=== PATIENT | female | born 1950 | race Caucasian/White ===

== ENCOUNTER 2020-04-06 19:37 | Inpatient (IN) | payer MEDICARE, BC ==
[~2020-04-06] VITALS: Ht 162.6 cm; Wt 99.2 kg
[2020-04-06 20:58] LABS: BASO # 0.1 (0.0-0.2); BASO % 0.3 % (0.0-2.0); EOS % 0.2 % (0-4.0); GRAN # 13.2 (1.4-6.5); GRAN % 80.3 % (42.2-75.2); HEMATOCRIT 42.2 % (37.0-47.0); HEMOGLOBIN 14.2 g/dl (12.5-16.0); LYMPH # 1.7 (1.2-3.4); LYMPH % 10.5 % (20.0-51.0); MEAN CELL VOLUME 88 fl (80.0-100.0); MEAN CORPUSCULAR HEMOGLOBIN 30 pg (27.0-31.0); MEAN CORPUSCULAR HGB CONC 34 g/dl (33.0-37.0); MEAN PLATELET VOLUME 11.1 fl (7.4-10.4); MONO # 1.4 (0.1-0.6); MONO % 8.3 % (1.7-9.3); PLATELET COUNT 227 K/mm3 (130-400); RED BLOOD COUNT 4.81 M/mm3 (4.10-5.30); REDCELL DISTRIBUTION WIDTH-CV 12.8 % (11.5-14.5)
[2020-04-06] MEDS ORDERED: LANTUS100 U/ML SQ (21:11)
[2020-04-06] MEDS ORDERED: GLUCOPHAGE1000 MG PO (21:12)
[2020-04-06] MEDS ORDERED: COZAAR100 MG PO (21:13)
[2020-04-06] MEDS ORDERED: ZYBAN150 M1 (21:13)
[2020-04-06 21:15] LABS: ALBUMIN 4.2 gm/dL (3.5-5.0); BILIRUBIN,TOTAL 0.6 mg/dL (0.0-1.0); C-REACTIVE PROTEIN 7.3 mg/dL (0.0-0.9); CALCIUM 10.2 mg/dL (8.4-10.2); CREATININE, serum 0.6 (0.52-1.25); POTASSIUM 3.9 mmol/L (3.4-5.0); TOTAL PROTEIN 7.8 gm/dL (6.4-8.2)
[2020-04-06] MEDS ORDERED: HCTZ 25MG TAB25 MG PO (21:15)
[2020-04-06] MEDS ORDERED: LEVOTHYROXINE (21:15)
[2020-04-06] MEDS ORDERED: SIMVASTATIN (21:16)
[2020-04-06] MEDS ORDERED: ASPIRIN 81M81 MG/TA2 PO ×2 (21:17→22:35)
[2020-04-06] MEDS ORDERED: PREVACID 30MG30 M1 PO (22:25)
[2020-04-06] MEDS ORDERED: TOPROL XL 50MG50 MG PO (22:26)
[2020-04-06] MEDS ORDERED: ZOCOR 40MG40 MG PO (22:26)
[2020-04-06] MEDS ORDERED: SYNTHROID0.1 MG/TAB PO (22:30)
[2020-04-06] MEDS ORDERED: CALCIUM CARBON650 M2 PO (22:31)
[2020-04-06] MEDS ORDERED: MAG-OX 400400 MG/TAB PO (22:33)
[2020-04-06] MEDS ORDERED: VITAMIN B COMPL1 SGL PO (22:34)
[2020-04-06] MEDS ORDERED: MASON NATURAL2000 IU PO (22:35)
[2020-04-06] MEDS ORDERED: FERROUSAL325 MG PO (22:35)
[2020-04-06] MEDS ORDERED: THE MEDICINE S200 M2 PO (22:36)
[2020-04-06] MEDS ORDERED: SENNA-S 50 MG-81 TAB PO (22:36)
[2020-04-06] MEDS ORDERED: WELLBUTRIN XL150 MG PO (22:38)
[2020-04-07 00:06] VITALS: BP 182/83; PULSE 76; TEMP 97.7
[2020-04-07] MEDS ORDERED: LUMIGAN 2.5 ML2.5 M1 OP (00:55)
--- NOTE | 2020-04-07 02:00 | NUR ---
Pt arrived to the floor via stretcher. Pt was able to ambulate to the bed. Pt did well with ambulating. Pt has Vanco infusing at this time. The hosptialist was contacted just to confirm medications and to inform her that during the pt assessment the pt stated that she was havinb buring when she urinated, a UA was done at this time. Pt also was given a sandwich tray at this time. Pt is currently resting in bed. Also during the assessment it was noted that pt left side of her foot and her toe has a small ulcer. Pt foot was marked at this time to show the area of redness. Pt has her call light within reach and her bed is in lowest position.
[2020-04-07 02:29] LABS: COLLECTION METHOD CLEAN CATCH
[2020-04-07 02:36] LABS: MUCOUS Present /lpf; PH 7 (5-8); SQUAMOUS EPITHELIAL 0-2 /hpf; URINE APPEARANCE Clear; URINE BACTERIA None Seen /hpf; URINE BILIRUBIN Negative (NEGATIVE); URINE BLOOD Negative (NEGATIVE); URINE COLOR Yellow; URINE GLUCOSE Negative (NEGATIVE); URINE KETONE Negative (NEGATIVE); URINE LEUKOCYTE ESTERASE Negative (NEGATIVE); URINE NITRATE Negative (NEGATIVE); URINE PROTEIN(semi-quant) 1+ (NEGATIVE); URINE RBC 0-2 /hpf; URINE UROBILINOGEN Negative (NEGATIVE)
[2020-04-07 04:27] VITALS: BP 142/65; PULSE 67; TEMP 98.2
--- NOTE | 2020-04-07 05:26 | NUR ---
Pt weight showed that she has a 5% weight difference in the previous entry. Pt was weighed in ED and this weight was 34lbs more. Pt bed was zeroed out and we got 205lbs for pts weight.
[2020-04-07 06:23] LABS: BASO % 0.4 % (0.0-2.0); EOS # 0.2 (0.0-0.7); EOS % 1.9 % (0-4.0); GRAN # 6.4 (1.4-6.5); GRAN % 69.6 % (42.2-75.2); HEMATOCRIT 38.2 % (37.0-47.0); HEMOGLOBIN 12.5 g/dl (12.5-16.0); LYMPH # 1.7 (1.2-3.4); LYMPH % 17.9 % (20.0-51.0); MEAN CELL VOLUME 91 fl (80.0-100.0); MEAN CORPUSCULAR HEMOGLOBIN 30 pg (27.0-31.0); MEAN CORPUSCULAR HGB CONC 33 g/dl (33.0-37.0); MEAN PLATELET VOLUME 12.1 fl (7.4-10.4); MONO # 0.9 (0.1-0.6); MONO % 9.9 % (1.7-9.3); PLATELET COUNT 195 K/mm3 (130-400); REDCELL DISTRIBUTION WIDTH-CV 13.2 % (11.5-14.5)
[2020-04-07 06:32] LABS: ALBUMIN 3.5 gm/dL (3.5-5.0); BILIRUBIN,TOTAL 0.4 mg/dL (0.0-1.0); CALCIUM 9.4 mg/dL (8.4-10.2); CREATININE, serum 0.65 (0.52-1.25); POTASSIUM 3.5 mmol/L (3.4-5.0); TOTAL PROTEIN 6.7 gm/dL (6.4-8.2)
--- NOTE | 2020-04-07 06:34 | NUR ---
Vancomycin Initial Dosing Pharmacy Note Ordering provider: Jerri Arias MD Indication/duration: L-foot cellulitis/ulcer, 5 days Relevant comorbidities: diabetes, h/o MRSA & osteomyelitis of R-foot LABS: SCr 0.6, CrCl~64, GFR 99 Recommendation: Will continue Vancomycin 1 gm IV q12h. Pharmacy will continue to monitor and check a Vancomycin trough on 04/08/20. Loading dose: 1.5 grams Maintenance dose: 1 gram every 12 hours Trough goal: 10-15 ug/mL
--- NOTE | 2020-04-07 07:26 | NUR ---
Pt currently sleeping in bed. Pt has her call light within reach.
--- NOTE | 2020-04-07 07:47 | NUR ---
CASEY CLAUDIO CALLED AND NOTIFED OF ORTHO CONSULT.
[2020-04-07 08:33] VITALS: BP 154/69; PULSE 62; TEMP 98.6
--- NOTE | 2020-04-07 12:00 | NUR ---
NOTIFIED THAT THE PATIENT IS REFUSING TO USE THE NOVOLOG SLIDING SCALE. PATIENT REPORTS THAT IN THE PAST THAT SHE DID NOT RESPOND TO THE NOVOLOG. PATIENT REPORTS THAT HUMALOG WORKS.
[2020-04-07 12:44] VITALS: BP 180/60; PULSE 66; TEMP 97.9
--- NOTE | 2020-04-07 14:38 | NUR ---
PATIENT IV TO INT. PATIENT TAKEN TO MRI VIA WHEELCHAIR. WILL WAIT FOR PATIENT ARRIVAL BACK TO ROOM 348.
--- NOTE | 2020-04-07 15:54 | NUR ---
PATIENT ARRIVED BACK TO ROOM 348 FROM MRI VIA WHEELCHAIR. PATIENT SETTELED INTO ROOM. PATIENT SITTING UP IN BEDSIDE CHAIR. LLE ELEVATED ON A PILLOW. PATIENT RE-CONNECTED TO IV FLUIDS. IV ZOSYN HUNG AT THIS TIME. PATIENT DENIES ANY PAIN. CALL LIGHT WITHIN REACH. THIS NURSE DISCUSSED WITH THE PATIENT THAT WOULD LIKE FOR THE PATIENT TO TRY THE NOVOLOG INSULIN WITH DINNER TO SEE IF IT HAS ANY AFFECT ON HER BLOOD SUGARS, IF NOT THEY WILL RE-VISIT INSULIN OPTIONS DUE TO HUMALOG BEING UNAVAILABLE IN THE HOSPITAL. PATIENT AGREEABLE TO TRY NOVOLOG.
--- NOTE | 2020-04-07 16:17 | NUR ---
Computer Science Professor met with patient to discuss discharge planning. Patient lives in [place] with her , Favio (ph#[phone]) and sees Dr. Jason for primary care. Patient obtains medications from [facility] with no difficulties. Patient has a rollator, cane, and CPAP at home. Patient is normally independent with ADLS and plans to return home at discharge. Patient states she is in the process of working on DPOA-HC at Dr. Jason's office. No needs identified at this time.
[2020-04-07 16:46] VITALS: BP 146/72; PULSE 67; TEMP 98.1
--- NOTE | 2020-04-07 19:25 | NUR ---
REPORT GIVEN TO KAYLA RUFF.
[2020-04-07 19:32] VITALS: BP 138/62; PULSE 77; TEMP 98.7
--- NOTE | 2020-04-07 21:15 | NUR ---
Pt. sitting up in the chair at this time. Pt. is A&OX3, assessment complete. IV to lt. forearm patent, IV fluids infusing per orders. Pt. denies pain. Applied a telfa dressing to lt. 5 th toe. Pt. denies further needs, call light within reach.
[2020-04-08 00:27] VITALS: BP 140/68; PULSE 78; TEMP 98.9
[2020-04-08 03:38] VITALS: BP 136/72; PULSE 93; TEMP 98.7
--- NOTE | 2020-04-08 06:55 | NUR ---
Lying in bed with eyes closed. Opens eyes when name called out. Denies pain. Redness and 1+ edema noted to left lower extremity. Dressing to left fifth digit in place. Pulled dressing back, purulent discharge from fifth digit, necrotic area noted. Patient denies needs or concerns at this time.
[2020-04-08 07:22] VITALS: BP 138/76; PULSE 66; TEMP 97.8
[2020-04-08 08:50] LABS: BASO # 0.1 (0.0-0.2); BASO % 0.9 % (0.0-2.0); EOS # 0.2 (0.0-0.7); EOS % 2.8 % (0-4.0); GRAN # 5.7 (1.4-6.5); GRAN % 70.7 % (42.2-75.2); HEMATOCRIT 40.1 % (37.0-47.0); HEMOGLOBIN 13.4 g/dl (12.5-16.0); LYMPH # 1.3 (1.2-3.4); LYMPH % 16.1 % (20.0-51.0); MEAN CELL VOLUME 89 fl (80.0-100.0); MEAN CORPUSCULAR HEMOGLOBIN 30 pg (27.0-31.0); MEAN CORPUSCULAR HGB CONC 33 g/dl (33.0-37.0); MEAN PLATELET VOLUME 11.5 fl (7.4-10.4); MONO # 0.7 (0.1-0.6); MONO % 9.1 % (1.7-9.3); PLATELET COUNT 222 K/mm3 (130-400); RED BLOOD COUNT 4.49 M/mm3 (4.10-5.30)
[2020-04-08 09:00] LABS: CALCIUM 9.9 mg/dL (8.4-10.2); CREATININE, serum 0.59 (0.52-1.25); POTASSIUM 4.2 mmol/L (3.4-5.0)
--- NOTE | 2020-04-08 10:34 | NUR ---
Vancomycin Follow-up Pharmacy Note: Current regimen: 1000 mg Q12H Vancomycin trough: 7.98 Adjustments: Changing regimen to 1000 mg Q8H Pharmacy will continue to follow.
[2020-04-08 11:22] VITALS: BP 128/76; PULSE 64; TEMP 98.6
--- NOTE | 2020-04-08 13:39 | NUR ---
Cleaned patient's left 5th digit on foot. Removed purulent discharge and scrubbed area with 4x4 with saline. Area dried. Patient unable to feel anything when cleaning toe and squeezing area to attempt to get more of the purulent discharge out. Area left open to air. Patient says that she would like to rediscuss options with Ortho in the morning as she is aware that she has osteomyelitis and she may need to have some type of amputation. Explain that we will notify ortho that she would like to talk further with them. Patient sitting up in chair with legs elevated. Denies additional needs at this time.
--- NOTE | 2020-04-08 14:11 | NUR ---
CASEY Rhodes, with ortho notified that patient would like to discuss options for treatment further. Carmelo says they will come by in the morning to discuss further with the patient.
[2020-04-08 16:14] VITALS: BP 142/72; PULSE 65; TEMP 98.6
--- NOTE | 2020-04-08 17:46 | NUR ---
Sitting up in chair. Just got off the phone with her daughter. Starting to eat dinner tray. Patient says that she feels overall today she had a good day. Was provided with a lot of good information related to her condition and she has been able to discuss it some with her family. Hopes to talk more with the Ortho specialist tomorrow and she still wants to update her PCM and get their insight with what is going on. Denies pain at this time or any additional needs.
[2020-04-08 20:26] VITALS: BP 122/78; PULSE 81; TEMP 98.7
--- NOTE | 2020-04-08 21:10 | NUR ---
Pt. sitting up in chair at this time. Pt. is A&OX3, assessment complete. INT to lt. forearm noted to be a bit puffy and pt. reports it feels tenders. INT to lt. forearm discontinued. New site started to rt. forearm by Machine Stacker. Lt. 5 toe noted to have purulent drainage, site is JEANNA. Reddness marked on foot. Pt. denies pain to the foot but reports generalized aches and pains and would like Tylenol with evening meds. Will give per orders. Pt. ambulated to the bathroom with walker then assisted to bed. Pt. denies further needs, call light within reach.
[2020-04-09 04:25] VITALS: BP 130/68; PULSE 66; TEMP 98.2
[2020-04-09 05:36] LABS: BASO # 0.1 (0.0-0.2); BASO % 0.7 % (0.0-2.0); EOS # 0.3 (0.0-0.7); EOS % 4.3 % (0-4.0); GRAN # 4.2 (1.4-6.5); GRAN % 62.9 % (42.2-75.2); HEMOGLOBIN 12.1 g/dl (12.5-16.0); LYMPH # 1.4 (1.2-3.4); LYMPH % 21.2 % (20.0-51.0); MEAN CELL VOLUME 88 fl (80.0-100.0); MEAN CORPUSCULAR HEMOGLOBIN 29 pg (27.0-31.0); MEAN CORPUSCULAR HGB CONC 33 g/dl (33.0-37.0); MEAN PLATELET VOLUME 11.3 fl (7.4-10.4); MONO # 0.7 (0.1-0.6); MONO % 10.5 % (1.7-9.3); PLATELET COUNT 208 K/mm3 (130-400); RED BLOOD COUNT 4.15 M/mm3 (4.10-5.30); REDCELL DISTRIBUTION WIDTH-CV 12.8 % (11.5-14.5)
[2020-04-09 05:37] LABS: HEMATOCRIT 36.6 % (37.0-47.0)
[2020-04-09 05:47] LABS: CALCIUM 9.7 mg/dL (8.4-10.2); CREATININE, serum 0.57 (0.52-1.25)
[2020-04-09 07:58] VITALS: BP 138/82; PULSE 65; TEMP 98.6
--- NOTE | 2020-04-09 08:11 | NUR ---
Sitting up in chair with eyes open. No pain at this time. Bilat LE edema noted. Redness noted to left lower extremity, areas of redness were previously marked, not out of the borders or any new redness noted. Left foot 5th digit with purulent discharge coming from toe, odorous. Dr. Acuna in room and talks with the patient about condition and plan at this time. Patient able to ask him questions and get clarification on diagnosis.
[2020-04-09 11:01] VITALS: BP 142/72; PULSE 63; TEMP 97.8
--- NOTE | 2020-04-09 11:49 | NUR ---
Sitting up in chair watching TV. Denies pain. Will want to get in shower after eating lunch. Denies additional needs or questions at this time.
[2020-04-09 15:31] VITALS: BP 144/84; PULSE 64; TEMP 98.3
--- NOTE | 2020-04-09 16:23 | NUR ---
Resumed care after getting report from Jes. Patient up to chair with feet elevated. Patient's at [facility]. No complaints or concerns from patient at this time.
--- NOTE | 2020-04-09 18:59 | NUR ---
Patient denies needed. Bedside report to Westley
[2020-04-09 20:44] VITALS: BP 138/85; PULSE 73; TEMP 98.3
[2020-04-10 04:27] VITALS: BP 169/74; PULSE 66; TEMP 98.2
[2020-04-10 06:14] LABS: BASO # 0.1 (0.0-0.2); BASO % 0.7 % (0.0-2.0); EOS # 0.3 (0.0-0.7); EOS % 4.8 % (0-4.0); GRAN # 4.2 (1.4-6.5); GRAN % 62.4 % (42.2-75.2); HEMATOCRIT 37.1 % (37.0-47.0); HEMOGLOBIN 12.4 g/dl (12.5-16.0); LYMPH # 1.4 (1.2-3.4); LYMPH % 21.2 % (20.0-51.0); MEAN CELL VOLUME 89 fl (80.0-100.0); MEAN CORPUSCULAR HEMOGLOBIN 30 pg (27.0-31.0); MEAN CORPUSCULAR HGB CONC 33 g/dl (33.0-37.0); MEAN PLATELET VOLUME 11.3 fl (7.4-10.4); MONO # 0.7 (0.1-0.6); MONO % 10.5 % (1.7-9.3); PLATELET COUNT 213 K/mm3 (130-400); RED BLOOD COUNT 4.15 M/mm3 (4.10-5.30); REDCELL DISTRIBUTION WIDTH-CV 12.9 % (11.5-14.5)
[2020-04-10 06:26] LABS: CALCIUM 9.8 mg/dL (8.4-10.2); CREATININE, serum 0.78 (0.52-1.25); POTASSIUM 3.9 mmol/L (3.4-5.0)
[2020-04-10 06:33] VITALS: BP 148/64; PULSE 67; TEMP 97.9
[2020-04-10] MEDS ORDERED: MAXIPIME2 GM IJ (08:37)
[2020-04-10 08:51] VITALS: BP 134/82; PULSE 67; TEMP 98.2
--- NOTE | 2020-04-10 09:14 | NUR ---
PT INDEPENDENT IN ROOM. LITTLE TOE ON LEFT FOOT INFECTED AND DRAINING. PLAN ON OUT PATIENT ABX X6 WEEKS. PICC LINE TO BE PLACED TODAY AND DISCHARGE AFTER RECIEVING IV ABX DOSE.
--- NOTE | 2020-04-10 10:19 | NUR ---
YOANA update. Patient order for IV antibotics was sent to express unit via fax. YOANA met with patient about choices on outpatient. Patient indicated that she wants to complete cycles at [facility] and she would prefer 06:-06:30 am to 06-06:30 pm. Patient reports that she has transportation. Nothing further.
[2020-04-10 11:54] VITALS: BP 124/78; PULSE 88; TEMP 98.3
--- NOTE | 2020-04-10 14:50 | NUR ---
DISCHARGE INSTRUCTIONS REVIEWED WITH PT. PT VERBALIZED UNDERSTANDING. LIGHT DRESSING PLACED OVER AFFECTED FOOT. SURGICAL SHOE PLACED FOR PATIENT.
== END 2020-04-10 15:32 | disposition home or self-care (01) | DRG 638 ==
LOC: COL.ER 19:37 → SURG 21:42
PROVIDERS: Emergency Medicine; Nurse Practitioner Family; ADMIT Student in an Organized Health Care Education/Training Program
DX: E11.628 Type 2 diabetes mellitus with other skin complications (principal); M86.8X8 Other osteomyelitis, other site; L03.032 Cellulitis of left toe; E11.69 Type 2 diabetes mellitus with other specified complication; E03.9 Hypothyroidism, unspecified; G47.30 Sleep apnea, unspecified; E78.5 Hyperlipidemia, unspecified; I10 Essential (primary) hypertension; I25.10 Atherosclerotic heart disease of native coronary artery without angina pectoris; E11.40 Type 2 diabetes mellitus with diabetic neuropathy, unspecified; Z86.14 Personal history of Methicillin resistant Staphylococcus aureus infection; Z96.653 Presence of artificial knee joint, bilateral; Z89.431 Acquired absence of right foot; Z90.49 Acquired absence of other specified parts of digestive tract; Z79.82 Long term (current) use of aspirin
CPT/HCPCS: 99223-AI; 99233-AI; 99239; A9585; J0692; J0696; J1650; J1815; J2543; J3370; J7030; J7050

== ENCOUNTER 2020-04-22 18:10 | Outpatient (RCR) | payer MEDICARE, BC ==
[2020-04-10 18:33] VITALS: BP 165/80; PULSE 74; TEMP 98.3
[2020-04-11 08:20] VITALS: BP 154/85; PULSE 68; TEMP 98.3
[2020-04-11 08:57] VITALS: BP 154/85; PULSE 69; TEMP 98.3
[2020-04-11 18:06] VITALS: BP 182/81; PULSE 87; TEMP 98.6
[2020-04-12 07:42] VITALS: BP 180/63; PULSE 61; TEMP 98.5
[2020-04-12 18:05] VITALS: BP 207/74; PULSE 70; TEMP 98.2
[2020-04-13 07:15] VITALS: BP 164/85; PULSE 62; TEMP 98.2
[2020-04-13 18:39] VITALS: BP 184/88; PULSE 66; TEMP 98.4
[2020-04-14 08:07] VITALS: BP 167/81; PULSE 67; TEMP 98.5
[2020-04-14 18:04] VITALS: BP 185/87; PULSE 83; TEMP 97.3
[2020-04-15 07:30] VITALS: BP 162/78; PULSE 65; TEMP 97.7
[2020-04-16 07:17] VITALS: BP 157/82; PULSE 66; TEMP 97.6
[2020-04-17 07:12] VITALS: BP 189/77; PULSE 66; TEMP 97.5
[2020-04-17 07:37] LABS: BASO # 0.1 (0.0-0.2); BASO % 0.8 % (0.0-2.0); EOS # 0.2 (0.0-0.7); GRAN # 4.8 (1.4-6.5); HEMATOCRIT 41.6 % (37.0-47.0); HEMOGLOBIN 13.6 g/dl (12.5-16.0); LYMPH # 1.6 (1.2-3.4); MEAN CELL VOLUME 90 fl (80.0-100.0); MEAN CORPUSCULAR HEMOGLOBIN 29 pg (27.0-31.0); MEAN CORPUSCULAR HGB CONC 33 g/dl (33.0-37.0); MEAN PLATELET VOLUME 11.1 fl (7.4-10.4); MONO # 0.7 (0.1-0.6); MONO % 9.8 % (1.7-9.3); PLATELET COUNT 235 K/mm3 (130-400); RED BLOOD COUNT 4.62 M/mm3 (4.10-5.30); REDCELL DISTRIBUTION WIDTH-CV 13.1 % (11.5-14.5)
[2020-04-17 07:48] LABS: ALANINE AMINOTRANSFERASE 19 U/L (4-34); ALBUMIN 4.1 gm/dL (3.5-5.0); ALKALINE PHOSPHATASE 110 U/L (50-136); ANION GAP 7 mmol/L (7-16); AST,SGOT 23 U/L (15-37); BILIRUBIN,TOTAL 0.4 mg/dL (0.0-1.0); BLOOD UREA NITROGEN 23 mg/dL (7-17); CALCIUM 10.5 mg/dL (8.4-10.2); CARBON DIOXIDE 31 mmol/L (22-30); CHLORIDE 101 mmol/L (98-107); CREATINE KINASE 27 U/L (30-135); CREATININE, serum 0.69 (0.52-1.25); GLUCOSE 72 mg/dL (74-106); POTASSIUM 4.1 mmol/L (3.4-5.0); SODIUM 138 mmol/L (137-145); TOTAL PROTEIN 7.7 gm/dL (6.4-8.2)
[2020-04-17 07:56] LABS: C-REACTIVE PROTEIN < 0.5 mg/dL (0.0-0.9)
[2020-04-17 08:30] LABS: ERYTHROCYTE SEDIMENTATION RATE 31 mm/hr (0-30)
[2020-04-17 18:16] VITALS: BP 200/91; PULSE 79; TEMP 97.7
[2020-04-18 07:27] VITALS: BP 162/81; PULSE 69; TEMP 98.1
--- NOTE | 2020-04-18 07:45 | NUR ---
PICC intact right upper arm with sterile dressing change done with insertion site cleansed with chloraprep x 1, chlorhexidine impregnated disk applied, skin prep, stat lock, and tegaderm applied. reports right upper arm no problems at insetion site. reports when she moves her arm a certain way there is a feeling of numbness in last 2 finger on her right hand. reports this feeling is improving. advised to continue with heat. will continue to monitor.
[2020-04-18 18:23] VITALS: BP 80/40; PULSE 73; TEMP 98.4
[2020-04-19 08:10] VITALS: BP 158/72; PULSE 69; TEMP 98.5
[2020-04-19 18:07] VITALS: BP 171/87; PULSE 73; TEMP 98.6
[2020-04-20 07:37] VITALS: BP 179/67; PULSE 70; TEMP 98.2
[2020-04-20 18:53] VITALS: BP 181/82; PULSE 77; TEMP 98.5
[2020-04-21 07:17] VITALS: BP 187/87; PULSE 65; TEMP 97.9
[2020-04-21 18:07] VITALS: BP 183/76; PULSE 76; TEMP 98.4
[~2020-04-22] VITALS: Ht 162.6 cm; Wt 104.0 kg
[2020-04-22 07:43] VITALS: BP 190/80; PULSE 64; TEMP 98.1
[~2020-04-22 18:10] MED LIST: ASPIRIN 81M81 MG/TA2 PO; CALCIUM CARBON650 M2 PO; COZAAR100 MG PO; FERROUSAL325 MG PO; GLUCOPHAGE1000 MG PO; HCTZ 25MG TAB25 MG PO; LANTUS100 U/ML SQ; LEVOTHYROXINE; LUMIGAN 2.5 ML2.5 M1 OP; MAG-OX 400400 MG/TAB PO; MASON NATURAL2000 IU PO; MAXIPIME2 GM IJ; PREVACID 30MG30 M1 PO; SENNA-S 50 MG-81 TAB PO; SIMVASTATIN; SYNTHROID0.1 MG/TAB PO; THE MEDICINE S200 M2 PO; TOPROL XL 50MG50 MG PO; VITAMIN B COMPL1 SGL PO; WELLBUTRIN XL150 MG PO; ZOCOR 40MG40 MG PO; ZYBAN150 M1
[2020-04-23 07:56] VITALS: BP 157/76; PULSE 66; TEMP 98.3
[2020-04-24 07:24] VITALS: BP 181/74; PULSE 75; TEMP 97.3
[2020-04-24 18:13] VITALS: PULSE 88; TEMP 98
[2020-04-24 18:29] LABS: HEMATOCRIT 41.5 % (37.0-47.0); HEMOGLOBIN 13.7 g/dl (12.5-16.0); MEAN CELL VOLUME 89 fl (80.0-100.0); MEAN CORPUSCULAR HEMOGLOBIN 29 pg (27.0-31.0); MEAN CORPUSCULAR HGB CONC 33 g/dl (33.0-37.0); MEAN PLATELET VOLUME 11.4 fl (7.4-10.4); PLATELET COUNT 229 K/mm3 (130-400); RED BLOOD COUNT 4.67 M/mm3 (4.10-5.30); REDCELL DISTRIBUTION WIDTH-CV 12.9 % (11.5-14.5)
[2020-04-24 18:42] LABS: ALANINE AMINOTRANSFERASE 19 U/L (4-34); ALBUMIN 4.2 gm/dL (3.5-5.0); ALKALINE PHOSPHATASE 104 U/L (50-136); ANION GAP 8 mmol/L (7-16); AST,SGOT 24 U/L (15-37); BILIRUBIN,TOTAL 0.4 mg/dL (0.0-1.0); BLOOD UREA NITROGEN 22 mg/dL (7-17); CALCIUM 10.5 mg/dL (8.4-10.2); CARBON DIOXIDE 30 mmol/L (22-30); CHLORIDE 98 mmol/L (98-107); CREATININE, serum 0.57 (0.52-1.25); GLUCOSE 197 mg/dL (74-106); POTASSIUM 4.1 mmol/L (3.4-5.0); SODIUM 136 mmol/L (137-145); TOTAL PROTEIN 7.5 gm/dL (6.4-8.2)
[2020-04-24 18:45] LABS: C-REACTIVE PROTEIN < 0.5 mg/dL (0.0-0.9)
[2020-04-24 19:00] LABS: ERYTHROCYTE SEDIMENTATION RATE 18 mm/hr (0-30)
[2020-04-25 07:15] VITALS: BP 169/72; PULSE 70; TEMP 98.1
--- NOTE | 2020-04-25 08:00 | NUR ---
PICC intact right upper arm with sterile dressing change done with insertion site cleansed with chloraprep x 1, chlorhexidine impregnated disk applied, skin prep, stat lock, and tegaderm applied. no signs or symptoms of IV complications noted. patient has concers regarding "funny feeling" on outer upper arm. denied pain at insertion site. no redness or swelling noted. reports "tingling" to right 4th and 5th finger at times. sensation is improving. advised warm moist pack and will continue to monitor. explained options of removing catheter and replacing. At this time, patient would like to wait and see if condition changes.
[2020-04-25 18:16] VITALS: BP 185/95; PULSE 72; TEMP 98.2
[2020-04-26 10:25] VITALS: BP 184/88; PULSE 68; TEMP 98.4
[2020-04-26 18:13] VITALS: BP 185/100; PULSE 74; TEMP 98
[2020-04-27 07:30] VITALS: BP 157/74; PULSE 75; TEMP 98.2
[2020-04-27 18:26] VITALS: BP 158/75; PULSE 75; TEMP 98.2
[2020-04-28 08:30] VITALS: BP 174/94; PULSE 70; TEMP 97.8
[2020-04-28 18:00] VITALS: BP 183/78; PULSE 71; TEMP 98.5
[2020-04-29 09:24] VITALS: BP 188/103; PULSE 73; TEMP 98.2
[2020-04-30 09:16] VITALS: BP 186/92; PULSE 68; TEMP 97.7
[2020-05-01 08:11] LABS: HEMATOCRIT 39.2 % (37.0-47.0); MEAN CELL VOLUME 90 fl (80.0-100.0); MEAN CORPUSCULAR HEMOGLOBIN 30 pg (27.0-31.0); MEAN CORPUSCULAR HGB CONC 33 g/dl (33.0-37.0); MEAN PLATELET VOLUME 11.6 fl (7.4-10.4); PLATELET COUNT 194 K/mm3 (130-400); RED BLOOD COUNT 4.37 M/mm3 (4.10-5.30); REDCELL DISTRIBUTION WIDTH-CV 12.9 % (11.5-14.5)
[2020-05-01 08:28] LABS: ALBUMIN 3.9 gm/dL (3.5-5.0); BILIRUBIN,TOTAL 0.5 mg/dL (0.0-1.0); C-REACTIVE PROTEIN 0.9 mg/dL (0.0-0.9); CALCIUM 9.2 mg/dL (8.4-10.2); CREATININE, serum 0.62 (0.52-1.25); POTASSIUM 3.9 mmol/L (3.4-5.0); TOTAL PROTEIN 7.2 gm/dL (6.4-8.2)
[2020-05-01 08:42] LABS: ERYTHROCYTE SEDIMENTATION RATE 18 mm/hr (0-30)
[2020-05-01 08:58] VITALS: BP 168/81; PULSE 63; TEMP 98.2
[2020-05-01 18:03] VITALS: PULSE 88; TEMP 98.2
[2020-05-02 07:31] VITALS: BP 171/77; PULSE 82; TEMP 98.3
[2020-05-02 18:26] VITALS: BP 180/100; PULSE 68; TEMP 98.3
[2020-05-03 07:29] VITALS: BP 186/74; PULSE 67; TEMP 98.2
[2020-05-03 18:27] VITALS: BP 170/82; PULSE 74; TEMP 98.3
[2020-05-04 07:35] VITALS: BP 185/72; PULSE 68; TEMP 98.5
[2020-05-04 18:13] VITALS: BP 175/70; PULSE 71; TEMP 98.2
[2020-05-05 08:00] VITALS: BP 164/88; PULSE 67; TEMP 98.6
[2020-05-05 18:04] VITALS: BP 154/67; PULSE 73; TEMP 98.3
[2020-05-06 08:49] VITALS: BP 184/85; PULSE 73; TEMP 98.8
[2020-05-07 08:13] VITALS: BP 177/91; PULSE 93; TEMP 97.7
[2020-05-08 07:27] LABS: BASO # 0.1 (0.0-0.2); EOS # 0.3 (0.0-0.7); EOS % 4.8 % (0-4.0); GRAN # 4.3 (1.4-6.5); GRAN % 63.4 % (42.2-75.2); HEMATOCRIT 40.2 % (37.0-47.0); HEMOGLOBIN 13.6 g/dl (12.5-16.0); LYMPH # 1.4 (1.2-3.4); LYMPH % 19.8 % (20.0-51.0); MEAN CELL VOLUME 88 fl (80.0-100.0); MEAN CORPUSCULAR HEMOGLOBIN 30 pg (27.0-31.0); MEAN CORPUSCULAR HGB CONC 34 g/dl (33.0-37.0); MEAN PLATELET VOLUME 10.8 fl (7.4-10.4); MONO # 0.7 (0.1-0.6); MONO % 10.9 % (1.7-9.3); PLATELET COUNT 197 K/mm3 (130-400); RED BLOOD COUNT 4.57 M/mm3 (4.10-5.30); REDCELL DISTRIBUTION WIDTH-CV 12.9 % (11.5-14.5)
[2020-05-08 07:30] VITALS: BP 181/77; PULSE 66; TEMP 98.3
[2020-05-08 07:38] LABS: ALANINE AMINOTRANSFERASE 21 U/L (4-34); ALBUMIN 4.1 gm/dL (3.5-5.0); ALKALINE PHOSPHATASE 113 U/L (50-136); ANION GAP 6 mmol/L (7-16); AST,SGOT 24 U/L (15-37); BILIRUBIN,TOTAL 0.5 mg/dL (0.0-1.0); BLOOD UREA NITROGEN 23 mg/dL (7-17); CALCIUM 9.9 mg/dL (8.4-10.2); CARBON DIOXIDE 32 mmol/L (22-30); CHLORIDE 99 mmol/L (98-107); CREATININE, serum 0.64 (0.52-1.25); GLUCOSE 140 mg/dL (74-106); POTASSIUM 4.3 mmol/L (3.4-5.0); SODIUM 137 mmol/L (137-145); TOTAL PROTEIN 7.4 gm/dL (6.4-8.2)
[2020-05-08 07:39] LABS: C-REACTIVE PROTEIN < 0.5 mg/dL (0.0-0.9)
[2020-05-08 08:18] LABS: ERYTHROCYTE SEDIMENTATION RATE 13 mm/hr (0-30)
[2020-05-08 18:12] VITALS: BP 195/91; PULSE 78; TEMP 98.9
[2020-05-09 07:36] VITALS: BP 176/58; PULSE 68; TEMP 98.3
--- NOTE | 2020-05-09 08:00 | NUR ---
Here for cares. PICC intact right upper arm with sterile dressing change done with insertion site cleansed with chloraprep x 1, chlorhexidine impregnated disk applied, skin prep, stat lock, and tegaderm applied. no signs or symptoms of IV complications noted. no concerns voiced. re-wrapped with an maci to protect catheter. to continue with cares in [place]. voiced understanding of instructions.
[2020-05-09 18:19] VITALS: BP 153/67; PULSE 77; TEMP 98.6
[2020-05-10 07:32] VITALS: BP 158/84; PULSE 77; TEMP 98.1
[2020-05-10 18:02] VITALS: BP 157/69; PULSE 85; TEMP 99
[2020-05-11 08:46] VITALS: BP 156/85; PULSE 64; TEMP 98.2
[2020-05-11 18:19] VITALS: BP 092/102; PULSE 74; TEMP 98.2
[2020-05-12 07:38] VITALS: BP 178/121; PULSE 69; TEMP 98.4
[2020-05-12 18:06] VITALS: BP 149/94; PULSE 74; TEMP 97.7
[2020-05-13 09:16] VITALS: PULSE 72; TEMP 98.3
[2020-05-14 08:23] VITALS: BP 168/84; PULSE 68; TEMP 98.5
[2020-05-15 07:34] VITALS: BP 157/72; PULSE 71; TEMP 98.1
[2020-05-15 07:51] LABS: HEMATOCRIT 39.9 % (37.0-47.0); HEMOGLOBIN 13.4 g/dl (12.5-16.0); MEAN CELL VOLUME 88 fl (80.0-100.0); MEAN CORPUSCULAR HEMOGLOBIN 30 pg (27.0-31.0); MEAN CORPUSCULAR HGB CONC 34 g/dl (33.0-37.0); MEAN PLATELET VOLUME 11.4 fl (7.4-10.4); PLATELET COUNT 195 K/mm3 (130-400); RED BLOOD COUNT 4.54 M/mm3 (4.10-5.30); REDCELL DISTRIBUTION WIDTH-CV 12.9 % (11.5-14.5)
[2020-05-15 08:00] LABS: BILIRUBIN,TOTAL 0.6 mg/dL (0.0-1.0); CALCIUM 10.2 mg/dL (8.4-10.2); CREATININE, serum 0.6 (0.52-1.25); POTASSIUM 4.3 mmol/L (3.4-5.0)
[2020-05-15 08:17] LABS: ERYTHROCYTE SEDIMENTATION RATE 19 mm/hr (0-30)
[2020-05-15 08:20] LABS: C-REACTIVE PROTEIN 0.5 mg/dL (0.0-0.9)
[2020-05-15 18:48] VITALS: BP 193/104; PULSE 72; TEMP 98.3
[2020-05-16 07:38] VITALS: BP 145/74; PULSE 71; TEMP 98.1
--- NOTE | 2020-05-16 08:00 | NUR ---
PICC intact right upper arm with sterile dressing change done with insertion site cleansed with chloraprep x 1, chlorhexidine impregnated disk applied, skin prep, stat lock, and tegaderm applied. patient reported variety of tingling and numbness in right hand. Discomfort on back side of right upper arm. Reported that is not worse. 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 Will continue with IV medication and then remove PICC. Patient in agreeance with plan.
[2020-05-16 18:08] VITALS: BP 185/74; PULSE 79; TEMP 97.6
[2020-05-17 07:32] VITALS: BP 146/63; PULSE 65; TEMP 98.2
[2020-05-17 18:33] VITALS: BP 203/95; PULSE 70; TEMP 98.1
[2020-05-18 07:51] VITALS: BP 168/85; PULSE 67; TEMP 98.1
[2020-05-19 07:30] VITALS: BP 151/90; PULSE 68; TEMP 97.8
[2020-05-22 07:52] LABS: HEMATOCRIT 40.5 % (37.0-47.0); HEMOGLOBIN 13.5 g/dl (12.5-16.0); MEAN CELL VOLUME 88 fl (80.0-100.0); MEAN CORPUSCULAR HEMOGLOBIN 29 pg (27.0-31.0); MEAN CORPUSCULAR HGB CONC 33 g/dl (33.0-37.0); MEAN PLATELET VOLUME 11.8 fl (7.4-10.4); PLATELET COUNT 198 K/mm3 (130-400); RED BLOOD COUNT 4.59 M/mm3 (4.10-5.30); REDCELL DISTRIBUTION WIDTH-CV 12.9 % (11.5-14.5)
[2020-05-22 08:03] LABS: ALBUMIN 4.1 gm/dL (3.5-5.0); BILIRUBIN,TOTAL 0.4 mg/dL (0.0-1.0); C-REACTIVE PROTEIN 0.8 mg/dL (0.0-0.9); CALCIUM 10.1 mg/dL (8.4-10.2); CREATININE, serum 0.6 (0.52-1.25); POTASSIUM 4.4 mmol/L (3.4-5.0)
[2020-05-22 08:06] VITALS: BP 149/79; PULSE 67; TEMP 97.7
[2020-05-22 08:29] LABS: ERYTHROCYTE SEDIMENTATION RATE 18 mm/hr (0-30)
[2020-05-22 18:47] VITALS: BP 193/80; PULSE 74; TEMP 98.4
[2020-05-26 08:32] VITALS: BP 162/80; PULSE 74; TEMP 98.1
== END 2020-05-26 10:14 | disposition home or self-care (01) ==
LOC: EUO 18:10 → COL.ER 04-29 17:50 → EUO 04-30 07:00 → COL.ER 05-13 18:03 → EUO 05-14 07:00
PROVIDERS: Internal Medicine Infectious Disease
DX: Z45.2 Encounter for adjustment and management of vascular access device (principal); A49.01 Methicillin susceptible Staphylococcus aureus infection, unspecified site; M86.9 Osteomyelitis, unspecified; E11.40 Type 2 diabetes mellitus with diabetic neuropathy, unspecified; I10 Essential (primary) hypertension; I25.10 Atherosclerotic heart disease of native coronary artery without angina pectoris; G47.30 Sleep apnea, unspecified; Z79.4 Long term (current) use of insulin; Z79.2 Long term (current) use of antibiotics; Z98.890 Other specified postprocedural states; E03.9 Hypothyroidism, unspecified
CPT/HCPCS: C1751; J0692

== ENCOUNTER → 2020-07-12 | Outpatient (CLI) | payer MEDICARE, BC ==
[2020-07-12 09:01] LABS: BASO # 0.1 (0.0-0.2); EOS # 0.2 (0.0-0.7); GRAN # 5.3 (1.4-6.5); GRAN % 66.2 % (42.2-75.2); HEMATOCRIT 42.4 % (37.0-47.0); LYMPH # 1.6 (1.2-3.4); LYMPH % 19.7 % (20.0-51.0); MEAN CELL VOLUME 89 fl (80.0-100.0); MEAN CORPUSCULAR HEMOGLOBIN 29 pg (27.0-31.0); MEAN CORPUSCULAR HGB CONC 33 g/dl (33.0-37.0); MEAN PLATELET VOLUME 11.3 fl (7.4-10.4); MONO # 0.8 (0.1-0.6); MONO % 9.7 % (1.7-9.3); PLATELET COUNT 223 K/mm3 (130-400); RED BLOOD COUNT 4.77 M/mm3 (4.10-5.30); REDCELL DISTRIBUTION WIDTH-CV 12.6 % (11.5-14.5)
[2020-07-12 09:24] LABS: ERYTHROCYTE SEDIMENTATION RATE 7 mm/hr (0-30)
[2020-07-13 16:58] LABS: ALBUMIN 3.7 gm/dL (3.5-5.0); BILIRUBIN,TOTAL 0.2 mg/dL (0.0-1.0); CALCIUM 9.8 mg/dL (8.4-10.2); CREATININE, serum 0.65 (0.52-1.25); POTASSIUM 4.5 mmol/L (3.4-5.0); TOTAL PROTEIN 6.7 gm/dL (6.4-8.2)
== END ==
LOC: COL.LAB 08:16
DX: B99.9 Unspecified infectious disease (principal)

== ENCOUNTER → 2020-09-13 | Outpatient (CLI) | payer MEDICARE, BC ==
[2020-09-13 14:53] LABS: BASO # 0.1 (0.0-0.2); BASO % 0.6 % (0.0-2.0); EOS # 0.2 (0.0-0.7); GRAN # 6.2 (1.4-6.5); GRAN % 73.1 % (42.2-75.2); HEMATOCRIT 43.8 % (37.0-47.0); HEMOGLOBIN 14.2 g/dl (12.5-16.0); LYMPH # 1.4 (1.2-3.4); LYMPH % 16.8 % (20.0-51.0); MEAN CELL VOLUME 90 fl (80.0-100.0); MEAN CORPUSCULAR HEMOGLOBIN 29 pg (27.0-31.0); MEAN CORPUSCULAR HGB CONC 32 g/dl (33.0-37.0); MEAN PLATELET VOLUME 11.4 fl (7.4-10.4); MONO # 0.6 (0.1-0.6); MONO % 7.1 % (1.7-9.3); PLATELET COUNT 208 K/mm3 (130-400); RED BLOOD COUNT 4.86 M/mm3 (4.10-5.30); REDCELL DISTRIBUTION WIDTH-CV 12.7 % (11.5-14.5)
[2020-09-13 15:04] LABS: BILIRUBIN,TOTAL 0.2 mg/dL (0.0-1.0); C-REACTIVE PROTEIN 0.7 mg/dL (0.0-0.9); CALCIUM 9.5 mg/dL (8.4-10.2); CREATININE, serum 0.7 (0.52-1.25); POTASSIUM 4.3 mmol/L (3.4-5.0); TOTAL PROTEIN 7.5 gm/dL (6.4-8.2)
[2020-09-13 15:21] LABS: ERYTHROCYTE SEDIMENTATION RATE 13 mm/hr (0-30)
== END ==
LOC: COL.LAB 14:12
PROVIDERS: Internal Medicine Infectious Disease
DX: B99.9 Unspecified infectious disease (principal)

== ENCOUNTER → 2021-01-05 | Outpatient (CLI) | payer MEDICARE, BC ==
[2021-01-05 17:01] LABS: BASO # 0.1 (0.0-0.2); BASO % 0.9 % (0.0-2.0); EOS # 0.2 (0.0-0.7); EOS % 2.4 % (0-4.0); GRAN % 68.5 % (42.2-75.2); HEMATOCRIT 43.5 % (37.0-47.0); HEMOGLOBIN 14.3 g/dl (12.5-16.0); LYMPH # 1.7 (1.2-3.4); LYMPH % 19.3 % (20.0-51.0); MEAN CELL VOLUME 90 fl (80.0-100.0); MEAN CORPUSCULAR HEMOGLOBIN 30 pg (27.0-31.0); MEAN CORPUSCULAR HGB CONC 33 g/dl (33.0-37.0); MEAN PLATELET VOLUME 11.4 fl (7.4-10.4); MONO # 0.8 (0.1-0.6); MONO % 8.6 % (1.7-9.3); PLATELET COUNT 219 K/mm3 (130-400); RED BLOOD COUNT 4.82 M/mm3 (4.10-5.30); REDCELL DISTRIBUTION WIDTH-CV 12.7 % (11.5-14.5)
[2021-01-05 17:05] LABS: ALANINE AMINOTRANSFERASE 29 U/L (4-34); ALKALINE PHOSPHATASE 95 U/L (50-136); ANION GAP 5 mmol/L (7-16); AST,SGOT 27 U/L (15-37); BILIRUBIN,TOTAL 0.4 mg/dL (0.0-1.0); BLOOD UREA NITROGEN 16 mg/dL (7-17); C-REACTIVE PROTEIN < 0.5 mg/dL (0.0-0.9); CALCIUM 10.2 mg/dL (8.4-10.2); CARBON DIOXIDE 30 mmol/L (22-30); CHLORIDE 100 mmol/L (98-107); CREATININE, serum 0.94 (0.52-1.25); GLUCOSE 188 mg/dL (74-106); POTASSIUM 4.4 mmol/L (3.4-5.0); SODIUM 135 mmol/L (137-145); TOTAL PROTEIN 7.3 gm/dL (6.4-8.2)
[2021-01-05 17:23] LABS: ERYTHROCYTE SEDIMENTATION RATE 9 mm/hr (0-30)
== END ==
LOC: COL.LAB 16:27
PROVIDERS: Nurse Practitioner
DX: B99.9 Unspecified infectious disease (principal)

== ENCOUNTER → 2021-03-05 | Outpatient (CLI) | payer MEDICARE, BC ==
[2021-03-05 15:21] LABS: BASO # 0.1 (0.0-0.2); BASO % 0.9 % (0.0-2.0); EOS # 0.2 (0.0-0.7); EOS % 2.3 % (0-4.0); GRAN # 6.1 (1.4-6.5); GRAN % 71.1 % (42.2-75.2); HEMATOCRIT 43.1 % (37.0-47.0); HEMOGLOBIN 14.3 g/dl (12.5-16.0); LYMPH # 1.6 (1.2-3.4); LYMPH % 18.7 % (20.0-51.0); MEAN CELL VOLUME 90 fl (80.0-100.0); MEAN CORPUSCULAR HEMOGLOBIN 30 pg (27.0-31.0); MEAN CORPUSCULAR HGB CONC 33 g/dl (33.0-37.0); MEAN PLATELET VOLUME 11.5 fl (7.4-10.4); MONO # 0.6 (0.1-0.6); MONO % 6.5 % (1.7-9.3); PLATELET COUNT 197 K/mm3 (130-400); RED BLOOD COUNT 4.79 M/mm3 (4.10-5.30); REDCELL DISTRIBUTION WIDTH-CV 12.6 % (11.5-14.5)
[2021-03-05 15:34] LABS: ALANINE AMINOTRANSFERASE 29 U/L (4-34); ALBUMIN 4.1 gm/dL (3.5-5.0); ALKALINE PHOSPHATASE 112 U/L (50-136); ANION GAP 7 mmol/L (7-16); AST,SGOT 28 U/L (15-37); BILIRUBIN,TOTAL 0.5 mg/dL (0.0-1.0); BLOOD UREA NITROGEN 17 mg/dL (7-17); CALCIUM 10.2 mg/dL (8.4-10.2); CARBON DIOXIDE 30 mmol/L (22-30); CHLORIDE 101 mmol/L (98-107); CREATININE, serum 0.72 (0.52-1.25); GLUCOSE 222 mg/dL (74-106); POTASSIUM 4.4 mmol/L (3.4-5.0); SODIUM 137 mmol/L (137-145); TOTAL PROTEIN 7.2 gm/dL (6.4-8.2)
[2021-03-05 15:38] LABS: C-REACTIVE PROTEIN < 0.5 mg/dL (0.0-0.9)
[2021-03-05 15:46] LABS: ERYTHROCYTE SEDIMENTATION RATE 13 mm/hr (0-30)
== END ==
LOC: COL.LAB 14:44
PROVIDERS: Nurse Practitioner
DX: B99.9 Unspecified infectious disease (principal)

== ENCOUNTER 2021-08-25 11:01 | Emergency (ER) | payer MEDICARE, BC ==
[~2021-08-25] VITALS: Ht 162.6 cm; Wt 106.8 kg
[2021-08-25 11:50] VITALS: TEMP 99.4
[2021-08-25] MEDS ORDERED: CEPHALEXIN500 M1 PO (13:56)
[2021-08-25] MEDS ORDERED: DOXYCYCLINE 10100 MG PO (13:56)
[2021-08-25] MEDS ORDERED: ROXICODONE 55 MG/TAB PO (13:56)
[2021-08-25 14:55] VITALS: BP 178/97; PULSE 69
== END 2021-08-25 14:55 | disposition home or self-care (01) ==
LOC: COL.ER 11:01
DX: L03.116 Cellulitis of left lower limb (principal); E11.621 Type 2 diabetes mellitus with foot ulcer; R03.0 Elevated blood-pressure reading, without diagnosis of hypertension; L97.919 Non-pressure chronic ulcer of unspecified part of right lower leg with unspecified severity; Z96.653 Presence of artificial knee joint, bilateral; Z79.4 Long term (current) use of insulin; Z79.84 Long term (current) use of oral hypoglycemic drugs

== ENCOUNTER 2021-08-29 18:47 | Emergency (ER) | payer MEDICARE, BC ==
[~2021-08-29] VITALS: Ht 162.6 cm; Wt 106.4 kg
[~2021-08-29 18:47] MED LIST changes: +CEPHALEXIN500 M1 PO; +DOXYCYCLINE 10100 MG PO; +ROXICODONE 55 MG/TAB PO
[2021-08-29 18:58] VITALS: TEMP 98.7
[2021-08-29] MEDS ORDERED: CLEOCIN HC150 MG/CAP PO (22:05)
[2021-08-29 22:22] VITALS: BP 186/106; PULSE 79
== END 2021-08-29 22:22 | disposition home or self-care (01) ==
LOC: COL.ER 18:47
DX: L03.116 Cellulitis of left lower limb (principal); L03.115 Cellulitis of right lower limb; Z88.0 Allergy status to penicillin

== ENCOUNTER → 2022-04-11 | Outpatient (CLI) | payer MEDICARE, BC ==
[~2022-04-11] MED LIST changes: +CLEOCIN HC150 MG/CAP PO
== END ==
LOC: COL.RAD 15:45
DX: R22.1 Localized swelling, mass and lump, neck (principal)